=== PATIENT | female | born 1940 | race Caucasian/White ===

== ENCOUNTER 2024-07-16 00:06 | Inpatient (IN) ==
[2024-07-16] MEDS: 0.9 % SODIUM CHLORIDE 1,000 ML IV ONE (00:59)
[2024-07-16 01:51] LABS: Basophils # (Auto) 0.04 K/mcL (0.00-0.30); Basophils % (Auto) 0.2 % (0.0-2.0); Eosinophils # (Auto) 0.04 K/mcL (0.00-0.70); Eosinophils % (Auto) 0.2 % (0.0-7.0); Hematocrit 32.5 % (34.1-44.9); Hemoglobin 10.3 g/dL (11.2-15.7); Lymphocytes # (Auto) 1.11 K/mcL (1.50-4.80); Lymphocytes % (Auto) 5.6 % (15.5-49.0); Mean Cell Volume 84.2 fL (80.0-100.0); Mean Corpuscular HGB Conc 31.7 g/dL (31.0-36.0); Mean Platelet Volume 9.9 fL (8.8-12.5); Monocytes # (Auto) 1.67 K/mcL (0.10-0.90); Monocytes % (Auto) 8.4 % (1.0-12.0); Neutrophils % (Auto) 84.9 % (38.0-78.0); Platelet Count 321 K/mcL (140-440); RBC 3.86 M/mcL (3.59-5.38); Red Cell Distribution Width 16.1 % (11.5-14.5)
[2024-07-16 02:00] LABS: Alcohol, Blood < 10.1 mg/dL; Alcohol,Blood < 0.010 gm/dL (<0.010)
[2024-07-16 02:10] LABS: Thyroid Stimulating Hormone 3.78 uIU/mL (0.27-5.01)
[2024-07-16 02:25] LABS: ALT/SGPT < 5 U/L (<40); AST/SGOT 18 U/L (<32); Albumin 3.7 gm/dL (3.2-5.2); Albumin/Globulin Ratio 0.9 (1.0-2.3); Alkaline Phosphatase 89 U/L (39-117); Bilirubin,Total 0.5 mg/dL (0.1-1.0); Blood Urea Nitrogen 33 mg/dL (8-23); Carbon Dioxide 24 mmol/L (22-30); Chloride 93 mmol/L (96-108); Globulin 3.9 gm/dL (2.2-3.7); Glomerular Filtration Rate 34; Glucose 251 mg/dL (70-105); Potassium 4.9 mmol/L (3.3-5.1); Sodium 131 mmol/L (133-145)
[2024-07-16 02:30] LABS: Appearance,Urine CLEAR (Clear); Bilirubin,Urine Negative (Negative); Color,Urine YELLOW; Glucose,Urine (UA) >=500 mg/dL (Negative); Ketones,Urine Negative (Negative); Leukocyte Esterase,Urine Negative /uL (Negative); Mucus,Urine FEW /hpf; Nitrate,Urine Negative (Negative); Protein,Urine 30 mg/dL (Negative); Specific Gravity,Urine 1.013 (1.000-1.035); Urine Blood Negative (Negative); Urine Hyaline Cast 3 /lph (0-2); Urine RBC 0 /hpf (0-3); Urine Squamous Epithelial Cell < 1 /hpf (0-4); Urine WBC 1 /hpf (0-4); Urobilinogen,Urine Negative
[2024-07-16 05:12] LABS: Basophils # (Auto) 0.03 K/mcL (0.00-0.30); Basophils % (Auto) 0.2 % (0.0-2.0); Eosinophils # (Auto) 0.01 K/mcL (0.00-0.70); Eosinophils % (Auto) 0.1 % (0.0-7.0); Hematocrit 32.3 % (34.1-44.9); Hemoglobin 10.3 g/dL (11.2-15.7); Lymphocytes # (Auto) 1.47 K/mcL (1.50-4.80); Lymphocytes % (Auto) 7.6 % (15.5-49.0); Mean Cell Volume 84.1 fL (80.0-100.0); Mean Corpuscular HGB Conc 31.9 g/dL (31.0-36.0); Mean Platelet Volume 10.1 fL (8.8-12.5); Monocytes # (Auto) 1.92 K/mcL (0.10-0.90); Neutrophils % (Auto) 81.7 % (38.0-78.0); Platelet Count 264 K/mcL (140-440); RBC 3.84 M/mcL (3.59-5.38); WBC 19.3 K/mcL (4.5-11.0)
[2024-07-16] MEDS: FUROSEMIDE 40 MG/4 ML VIAL IV ONE ×2 (09:00→19:04)
[2024-07-16] MEDS ORDERED: IPRATROPIUM/ALBUTEROL 3 ML AMPUL.NEB NEB PRN (09:28)
[2024-07-16] MEDS ORDERED: ONDANSETRON 4 MG/2 ML VIAL IV PRN (09:28)
[2024-07-16] MEDS ORDERED: POLYETHYLENE GLYCOL 3350 17 GM PACKET PO PRN (09:28)
[2024-07-16] MEDS: ACETAMINOPHEN 325 MG TABLET PO PRN (11:32)
[2024-07-16] MEDS: GABAPENTIN 100 MG CAPSULE PO SCH (16:01)
[2024-07-16] MEDS: 0.9 % SODIUM CHLORIDE 10 ML SYRINGE IV SCH (16:02)
[2024-07-16] MEDS ORDERED: DEXTROSE 31 GM ORAL.SUSP PO PRN (16:51)
[2024-07-16] MEDS ORDERED: DEXTROSE 50% 50 ML VIAL IV PRN (16:51)
[2024-07-16] MEDS: INSULIN LISPRO 1 UNIT/0.01 ML UNIT SQ SCH (17:15)
[2024-07-16] MEDS: METOPROLOL SUCCINATE 25 MG TAB.XL.24H PO ONE (17:51)
[2024-07-16] MEDS: METOPROLOL TARTRATE 5 MG/5 ML VIAL IV ONE (19:04)
[2024-07-16] MEDS: APIXABAN 5 MG TABLET PO SCH (20:08)
[2024-07-17 06:51] LABS: ALT/SGPT 18 U/L (<40); AST/SGOT 44 U/L (<32); Albumin 3.4 gm/dL (3.2-5.2); Albumin/Globulin Ratio 1.1 (1.0-2.3); Alkaline Phosphatase 82 U/L (39-117); Bilirubin,Direct 0.2 mg/dL (<0.3); Bilirubin,Total 0.4 mg/dL (0.1-1.0); Blood Urea Nitrogen 30 mg/dL (8-23); Calcium 8.6 mg/dL (8.6-10.4); Carbon Dioxide 24 mmol/L (22-30); Chloride 94 mmol/L (96-108); Glomerular Filtration Rate 38; Glucose 170 mg/dL (70-105); Lactate Dehydrogenase 214 U/L (135-225); Potassium 3.8 mmol/L (3.3-5.1); Sodium 135 mmol/L (133-145); Triglycerides 83 mg/dL (<150); Uric Acid 8.8 mg/dL (2.5-8.0)
[2024-07-17 06:54] LABS: Basophils # (Auto) 0.04 K/mcL (0.00-0.30); Basophils % (Auto) 0.3 % (0.0-2.0); Eosinophils # (Auto) 0.01 K/mcL (0.00-0.70); Eosinophils % (Auto) 0.1 % (0.0-7.0); Hematocrit 33.6 % (34.1-44.9); Hemoglobin 10.8 g/dL (11.2-15.7); Lymphocytes # (Auto) 1.61 K/mcL (1.50-4.80); Lymphocytes % (Auto) 12.6 % (15.5-49.0); Mean Cell Volume 83.4 fL (80.0-100.0); Mean Corpuscular HGB Conc 32.1 g/dL (31.0-36.0); Mean Platelet Volume 10.2 fL (8.8-12.5); Monocytes # (Auto) 1.17 K/mcL (0.10-0.90); Monocytes % (Auto) 9.2 % (1.0-12.0); Platelet Count 251 K/mcL (140-440); RBC 4.03 M/mcL (3.59-5.38); WBC 12.8 K/mcL (4.5-11.0)
[2024-07-17] MEDS: MAGNESIUM SULFATE 24.36 MEQ in DEXTROSE 5% IN WATER 50 ML IV ONE (08:56)
[2024-07-17] MEDS: FUROSEMIDE 100 MG/10 ML VIAL IV ONE (08:57)
[2024-07-17] MEDS: LISINOPRIL 10 MG TABLET PO SCH (08:59)
[2024-07-17] MEDS: ATORVASTATIN 40 MG TABLET PO SCH (08:59)
[2024-07-17] MEDS: METOPROLOL SUCCINATE 25 MG TAB.XL.24H PO SCH (08:59)
[2024-07-17] MEDS: DOXYCYCLINE 100 MG in DEXTROSE 5% IN WATER 100 ML IV SCH (10:22)
[2024-07-18 07:07] LABS: Basophils # (Auto) 0.03 K/mcL (0.00-0.30); Basophils % (Auto) 0.3 % (0.0-2.0); Eosinophils # (Auto) 0.05 K/mcL (0.00-0.70); Eosinophils % (Auto) 0.5 % (0.0-7.0); Hematocrit 30.7 % (34.1-44.9); Hemoglobin 9.9 g/dL (11.2-15.7); Lymphocytes # (Auto) 1.15 K/mcL (1.50-4.80); Mean Cell Volume 82.7 fL (80.0-100.0); Mean Corpuscular HGB Conc 32.2 g/dL (31.0-36.0); Mean Platelet Volume 10.2 fL (8.8-12.5); Monocytes % (Auto) 12.5 % (1.0-12.0); Neutrophils % (Auto) 75.1 % (38.0-78.0); Platelet Count 225 K/mcL (140-440); RBC 3.71 M/mcL (3.59-5.38); Red Cell Distribution Width 16.1 % (11.5-14.5); WBC 10.4 K/mcL (4.5-11.0)
[2024-07-18] MEDS: cefTRIAXone 1 GM VIAL IV SCH (08:15)
[2024-07-18 08:21] LABS: ALT/SGPT 35 U/L (<40); AST/SGOT 105 U/L (<32); Albumin/Globulin Ratio 0.9 (1.0-2.3); Alkaline Phosphatase 78 U/L (39-117); Bilirubin,Direct < 0.2 mg/dL (0-0.3); Bilirubin,Total 0.3 mg/dL (0.1-1.0); Blood Urea Nitrogen 39 mg/dL (8-23); Calcium 8.5 mg/dL (8.6-10.4); Carbon Dioxide 25 mmol/L (22-30); Chloride 91 mmol/L (96-108); Globulin 3.5 gm/dL (2.2-3.7); Glomerular Filtration Rate 41; Glucose 145 mg/dL (70-105); Lactate Dehydrogenase 223 U/L (135-225); Phosphorous 2.5 mg/dL (2.5-4.5); Potassium 3.5 mmol/L (3.3-5.1); Sodium 132 mmol/L (133-145); Triglycerides 117 mg/dL (<150); Uric Acid 9.2 mg/dL (2.5-8.0)
[2024-07-18] MEDS: FUROSEMIDE 40 MG/4 ML VIAL IV SCH (09:46)
[2024-07-18] MEDS: METOPROLOL TARTRATE 5 MG/5 ML VIAL IV ONE ×2 (23:22→23:54)
[2024-07-19 06:32] LABS: ALT/SGPT 29 U/L (<40); AST/SGOT 66 U/L (<32); Albumin 2.8 gm/dL (3.2-5.2); Albumin/Globulin Ratio 0.8 (1.0-2.3); Alkaline Phosphatase 78 U/L (39-117); Bilirubin,Direct < 0.2 mg/dL (0-0.3); Bilirubin,Total 0.3 mg/dL (0.1-1.0); Blood Urea Nitrogen 33 mg/dL (8-23); Carbon Dioxide 25 mmol/L (22-30); Chloride 89 mmol/L (96-108); Globulin 3.5 gm/dL (2.2-3.7); Glomerular Filtration Rate 52; Glucose 154 mg/dL (70-105); Lactate Dehydrogenase 198 U/L (135-225); Phosphorous 1.9 mg/dL (2.5-4.5); Potassium 3.1 mmol/L (3.3-5.1); Sodium 126 mmol/L (133-145); Triglycerides 124 mg/dL (<150); Uric Acid 8.5 mg/dL (2.5-8.0)
[2024-07-19 06:56] LABS: Basophils # (Auto) 0.04 K/mcL (0.00-0.30); Basophils % (Auto) 0.4 % (0.0-2.0); Eosinophils # (Auto) 0.01 K/mcL (0.00-0.70); Eosinophils % (Auto) 0.1 % (0.0-7.0); Hematocrit 30.3 % (34.1-44.9); Hemoglobin 9.9 g/dL (11.2-15.7); Lymphocytes # (Auto) 1.64 K/mcL (1.50-4.80); Lymphocytes % (Auto) 14.6 % (15.5-49.0); Mean Cell Volume 81.5 fL (80.0-100.0); Mean Corpuscular HGB Conc 32.7 g/dL (31.0-36.0); Mean Platelet Volume 10.1 fL (8.8-12.5); Monocytes # (Auto) 1.95 K/mcL (0.10-0.90); Monocytes % (Auto) 17.3 % (1.0-12.0); Neutrophils % (Auto) 67.1 % (38.0-78.0); Platelet Count 198 K/mcL (140-440); RBC 3.72 M/mcL (3.59-5.38); WBC 11.3 K/mcL (4.5-11.0)
[2024-07-19] MEDS: 0.9 % SODIUM CHLORIDE 500 ML IV SCH (08:48)
[2024-07-19] MEDS: POTASSIUM CHLORIDE 20 MEQ PACKET PO SCH (08:48)
[2024-07-19] MEDS: SODIUM CHLORIDE 1 GM TABLET PO SCH (08:49)
[2024-07-19] MEDS: MAGNESIUM SULFATE 2 GM/50 ML BAG IV SCH (09:18)
[2024-07-19] MEDS: 0.9 % SODIUM CHLORIDE 1,000 ML IV SCH (09:24)
[2024-07-19] MEDS: MAGNESIUM SULFATE 24.36 MEQ in DEXTROSE 5% IN WATER 50 ML IV ONE (09:54)
[2024-07-19] MEDS: MAGNESIUM SULFATE 1 GM/100 ML BAG IV SCH (11:05)
[2024-07-19] MEDS: POTASSIUM PHOSPHATE 20 MEQ in DEXTROSE 5% IN WATER 250 ML IV SCH (11:05)
[2024-07-19] MEDS: 0.9 % SODIUM CHLORIDE 500 ML IV ONE (11:06)
[2024-07-19 12:57] LABS: Blood Urea Nitrogen 34 mg/dL (8-23); Calcium 7.9 mg/dL (8.6-10.4); Carbon Dioxide 26 mmol/L (22-30); Chloride 92 mmol/L (96-108); Glomerular Filtration Rate 52; Glucose 246 mg/dL (70-105); Potassium 3.8 mmol/L (3.3-5.1); Sodium 127 mmol/L (133-145)
[2024-07-19] MEDS: 0.9 % SODIUM CHLORIDE 1,000 ML IV ONE (14:56)
[2024-07-19 16:09] LABS: Phosphorous 2.8 mg/dL (2.5-4.5)
[2024-07-20 06:37] LABS: Basophils # (Auto) 0.03 K/mcL (0.00-0.30); Basophils % (Auto) 0.2 % (0.0-2.0); Eosinophils # (Auto) 0.09 K/mcL (0.00-0.70); Eosinophils % (Auto) 0.7 % (0.0-7.0); Hematocrit 26.8 % (34.1-44.9); Hemoglobin 8.5 g/dL (11.2-15.7); Lymphocytes # (Auto) 1.77 K/mcL (1.50-4.80); Mean Cell Volume 83.5 fL (80.0-100.0); Mean Corpuscular HGB Conc 31.7 g/dL (31.0-36.0); Mean Platelet Volume 10.4 fL (8.8-12.5); Monocytes # (Auto) 2.31 K/mcL (0.10-0.90); Monocytes % (Auto) 18.2 % (1.0-12.0); Neutrophils % (Auto) 66.5 % (38.0-78.0); Platelet Count 199 K/mcL (140-440); RBC 3.21 M/mcL (3.59-5.38); Red Cell Distribution Width 16.8 % (11.5-14.5); WBC 12.7 K/mcL (4.5-11.0)
[2024-07-20 07:21] LABS: ALT/SGPT 20 U/L (<40); AST/SGOT 43 U/L (<32); Albumin 2.5 gm/dL (3.2-5.2); Albumin/Globulin Ratio 0.8 (1.0-2.3); Alkaline Phosphatase 79 U/L (39-117); Bilirubin,Direct < 0.2 mg/dL (0-0.3); Bilirubin,Total 0.3 mg/dL (0.1-1.0); Blood Urea Nitrogen 25 mg/dL (8-23); Calcium 8.2 mg/dL (8.6-10.4); Carbon Dioxide 22 mmol/L (22-30); Chloride 100 mmol/L (96-108); Globulin 3.1 gm/dL (2.2-3.7); Glomerular Filtration Rate 80; Glucose 140 mg/dL (70-105); Lactate Dehydrogenase 181 U/L (135-225); Phosphorous 1.9 mg/dL (2.5-4.5); Potassium 3.7 mmol/L (3.3-5.1); Sodium 133 mmol/L (133-145); Triglycerides 97 mg/dL (<150); Uric Acid 6.8 mg/dL (2.5-8.0)
[2024-07-20] MEDS: METOPROLOL SUCCINATE 25 MG TAB.XL.24H PO SCH (08:41)
[2024-07-20] MEDS: POTASSIUM PHOSPHATE 40 MEQ in DEXTROSE 5% IN WATER 500 ML IV SCH (10:39)
[2024-07-20] MEDS: DOXYCYCLINE HYCLATE 100 MG TABLET.ORL PO SCH (20:32)
[2024-07-21 06:42] LABS: Basophils # (Auto) 0.06 K/mcL (0.00-0.30); Basophils % (Auto) 0.4 % (0.0-2.0); Eosinophils # (Auto) 0.28 K/mcL (0.00-0.70); Eosinophils % (Auto) 1.9 % (0.0-7.0); Hematocrit 27.2 % (34.1-44.9); Hemoglobin 8.7 g/dL (11.2-15.7); Lymphocytes # (Auto) 2.02 K/mcL (1.50-4.80); Lymphocytes % (Auto) 13.8 % (15.5-49.0); Mean Cell Volume 83.7 fL (80.0-100.0); Mean Platelet Volume 10.4 fL (8.8-12.5); Monocytes # (Auto) 1.96 K/mcL (0.10-0.90); Monocytes % (Auto) 13.4 % (1.0-12.0); Neutrophils % (Auto) 69.7 % (38.0-78.0); Platelet Count 242 K/mcL (140-440); RBC 3.25 M/mcL (3.59-5.38); Red Cell Distribution Width 16.9 % (11.5-14.5); WBC 14.6 K/mcL (4.5-11.0)
[2024-07-21 07:37] LABS: ALT/SGPT 16 U/L (<40); AST/SGOT 29 U/L (<32); Albumin 2.6 gm/dL (3.2-5.2); Albumin/Globulin Ratio 0.8 (1.0-2.3); Alkaline Phosphatase 92 U/L (39-117); Bilirubin,Direct < 0.2 mg/dL (0-0.3); Bilirubin,Total 0.3 mg/dL (0.1-1.0); Blood Urea Nitrogen 22 mg/dL (8-23); Calcium 8.6 mg/dL (8.6-10.4); Carbon Dioxide 22 mmol/L (22-30); Chloride 101 mmol/L (96-108); Globulin 3.3 gm/dL (2.2-3.7); Glomerular Filtration Rate 80; Glucose 154 mg/dL (70-105); Lactate Dehydrogenase 182 U/L (135-225); Phosphorous 2.3 mg/dL (2.5-4.5); Potassium 4.2 mmol/L (3.3-5.1); Sodium 135 mmol/L (133-145); Triglycerides 74 mg/dL (<150); Uric Acid 6.2 mg/dL (2.5-8.0)
[2024-07-21 08:52] LABS: Eosinophils % (Manual) 2 % (0-7); Lymphocytes % 15 % (15-49); Monocytes % (Manual) 8 % (1-12); Platelet Estimate NORMAL (Normal); RBC Morphology NORMAL (Normal); Segmented Neutrophils % 75 % (38-78)
[2024-07-21] MEDS: FUROSEMIDE 40 MG/4 ML VIAL IV SCH (10:14)
[2024-07-21] MEDS: ALBUMIN HUMAN 12.5 GM/50 ML VIAL IV SCH (10:15)
[2024-07-21] MEDS: METOPROLOL TARTRATE 5 MG/5 ML VIAL IV PRN (22:56)
[2024-07-22] MEDS: METOPROLOL SUCCINATE 25 MG TAB.XL.24H PO SCH (08:18)
[2024-07-22 08:37] LABS: ALT/SGPT 12 U/L (<40); AST/SGOT 20 U/L (<32); Albumin 3.1 gm/dL (3.2-5.2); Albumin/Globulin Ratio 0.9 (1.0-2.3); Alkaline Phosphatase 93 U/L (39-117); Bilirubin,Direct < 0.2 mg/dL (0-0.3); Bilirubin,Total 0.4 mg/dL (0.1-1.0); Blood Urea Nitrogen 18 mg/dL (8-23); Calcium 9.6 mg/dL (8.6-10.4); Carbon Dioxide 25 mmol/L (22-30); Chloride 101 mmol/L (96-108); Globulin 3.4 gm/dL (2.2-3.7); Glomerular Filtration Rate 84; Glucose 188 mg/dL (70-105); Hematocrit 29.1 % (34.1-44.9); Hemoglobin 9.2 g/dL (11.2-15.7); Lactate Dehydrogenase 175 U/L (135-225); Mean Cell Volume 83.4 fL (80.0-100.0); Mean Corpuscular HGB Conc 31.6 g/dL (31.0-36.0); Mean Platelet Volume 9.7 fL (8.8-12.5); Phosphorous 2.6 mg/dL (2.5-4.5); Platelet Count 313 K/mcL (140-440); Potassium 3.9 mmol/L (3.3-5.1); RBC 3.49 M/mcL (3.59-5.38); Red Cell Distribution Width 16.7 % (11.5-14.5); Sodium 138 mmol/L (133-145); Triglycerides 74 mg/dL (<150); Uric Acid 5.5 mg/dL (2.5-8.0); WBC 13.3 K/mcL (4.5-11.0)
[2024-07-22 09:02] LABS: Anisocytosis 1+ (None Seen); Eosinophils % (Manual) 1 % (0-7); Lymphocytes % 23 % (15-49); Monocytes % (Manual) 3 % (1-12); Platelet Estimate NORMAL (Normal); RBC Morphology ABNORMAL (Normal); Reactive Lymphocytes 1 % (0-2); Segmented Neutrophils % 72 % (38-78)
[2024-07-22] MEDS: FUROSEMIDE 40 MG/4 ML VIAL IV ONE (09:18)
[2024-07-22] MEDS: ALBUMIN HUMAN 12.5 GM/50 ML VIAL IV ONE (09:23)
[2024-07-22] MEDS: MAGNESIUM SULFATE 2 GM/50 ML BAG IV ONE (09:48)
[2024-07-22] MEDS: SENNOSIDES 1 TABLET PO PRN (20:05)
[2024-07-23 05:48] LABS: ALT/SGPT 8 U/L (<40); AST/SGOT 17 U/L (<32); Albumin 2.9 gm/dL (3.2-5.2); Alkaline Phosphatase 80 U/L (39-117); Bilirubin,Direct < 0.2 mg/dL (0-0.3); Bilirubin,Total 0.3 mg/dL (0.1-1.0); Blood Urea Nitrogen 18 mg/dL (8-23); Calcium 9.1 mg/dL (8.6-10.4); Carbon Dioxide 25 mmol/L (22-30); Chloride 105 mmol/L (96-108); Glomerular Filtration Rate 84; Glucose 148 mg/dL (70-105); Lactate Dehydrogenase 160 U/L (135-225); Phosphorous 3.2 mg/dL (2.5-4.5); Potassium 3.6 mmol/L (3.3-5.1); Sodium 141 mmol/L (133-145); Triglycerides 68 mg/dL (<150)
[2024-07-23] MEDS: HYDROCHLOROTHIAZIDE 25 MG TABLET PO SCH (10:50)
[2024-07-23] MEDS: MAGNESIUM SULFATE 2 GM/50 ML BAG IV SCH (10:55)
== END 2024-07-23 12:35 | DRG 291 ==
LOC: ED 00:06 → ICU 09:13
PROVIDERS: ADMIT Student in an Organized Health Care Education/Training Program; ATTEND Internal Medicine